=== PATIENT | female | born 1985 | race Hispanic/Latino ===

== ENCOUNTER 2019-07-28 11:37 | Inpatient (IN) | payer OTHER ==
[2019-07-28 12:41] LABS: Hematocrit 34.9 % (30.3-42.9); Mean Corpuscular HGB Conc 35 % (30-34); Mean Corpuscular Volume 90 fl (79-97); Platelet Count 191 K/mm3 (140-440); Red Blood Count 3.89 M/mm3 (3.65-5.03); Red Cell Distribution Width 13.4 % (13.2-15.2)
[2019-07-28 13:01] LABS: Bacteria,Urine 4+ /HPF (Negative); Bilirubin,Urine NEG (Negative); Blood,Urine NEG (Negative); Calcium Oxalate Crystals,Urine 1+; Color,Urine Yellow (Yellow); Mucus,Urine FEW /HPF; Protein,Urine <15 mg/dL mg/dL (Negative); Urobilinogen,Urine < 2.0 mg/dL (<2.0)
[2019-07-28 13:44] LABS: Alanine Aminotransferase 10 units/L (7-56); Uric Acid 5.5 mg/dL (3.5-7.6)
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
[2019-07-28] MEDS ORDERED: ePHEDrine SULFATE 50 MG/1 ML INJ IV PRN (15:19)
[2019-07-28] MEDS ORDERED: MINERAL OIL 30 ML ORAL LIQD PO PRN (15:19)
[2019-07-28] MEDS ORDERED: ONDANSETRON 4 MG/2 ML INJ IV PRN (15:19)
[2019-07-28] MEDS ORDERED: OXYTOCIN 20 UNIT/1000ML DRIP 20 UNITS/1,000 ML BAG IV SCH (16:00)
[2019-07-28] MEDS ORDERED: OXYTOCIN DRIP 30 UNITS/500 ML BAG IV SCH ×2 (16:00)
[2019-07-28] MEDS: fentaNYL 100 MCG/2 ML INJ IV PRN (16:08)
[2019-07-28] MEDS ORDERED: TERBUTALINE 1 MG/1 ML INJ IVP PRN (16:19)
[2019-07-28] MEDS ORDERED: TERBUTALINE 1 MG/1 ML INJ SUB-Q PRN (16:19)
[2019-07-28] MEDS ORDERED: LIDOCAINE (2%) 20 MG/1 ML VIAL 20 ML MDV INFILTRATI ONE (16:19)
--- NOTE | 2019-07-28 17:39 | Ultrasound Report ---
ULTRASOUND BIOPHYSICAL PROFILE AND LIMITED OB ULTRASOUND INDICATION / CLINICAL INFORMATION: well-being. KIMBERLEY. COMPARISON: None available. FINDINGS: BREATHING MOVEMENT = 2 GROSS BODY MOVEMENT = 2 TONE = 2 QUALITATIVE AMNIOTIC FLUID VOLUME = 2 TOTAL BIOPHYSICAL SCORE = 8/8 AMNIOTIC FLUID INDEX (cm) = 15.0 PRESENTATION: Cephalic. HEART RATE (beats per minute): 164 IMPRESSION: 1. biophysical profile = 8/8 2. KIMBERLEY = 15 cm Signer Name: Leo Pruitt MD Signed: 07/28/2019 5:34 PM Workstation Name: [email or web address]
[2019-07-28] MEDS: LACTATED RINGERS 1,000 ML IV SCH (19:14)
[2019-07-28] MEDS ORDERED: ZOLPIDEM 10 MG TAB PO PRN (19:48)
[2019-07-29] MEDS: LACTATED RINGERS 1,000 ML IV SCH ×2 (03:10→08:12)
--- NOTE | 2019-07-29 07:31 | Progress Note ---
Assessment and Plan pt c/o ctx increasing in intensity. Discussed options and expectations for today. Pt agreed with AROM. Encouraged pt to ask for epidural PRN. Nurses to start increasing pitocin per protocol. b/p stable overnight, no c/o HINTON, visual changes or epigastric pain. will continue to monitor closely. all questions addressed, pt and s/o verbalize understanding. - Patient Problems (1) 40 weeks gestation of Current Visit: Yes Status: Acute (2) Gestational hypertension Onset Date: ~07/28/19 Current Visit: Yes Status: Acute Qualifiers: Trimester: third trimester Qualified Code(s): O13.3 - Gestational [-induced] hypertension without significant proteinuria, third trimester Subjective - Subjective Date of service: 07/29/19 Principal diagnosis: IUP @ 40+3; IOL for GHTN Patient reports: movement normal, contractions, no vaginal bleeding Objective - Vital Signs Vital Signs: Vital Signs - 12hr 07/28/19 07/28/19 07/28/19 19:40 20:11 20:42 Pulse Rate 105 H 96 H 96 H Blood Pressure 137/91 154/94 145/92 07/28/19 07/28/19 07/28/19 21:10 21:40 22:10 Pulse Rate 101 H 99 H 115 H Blood Pressure 124/85 132/86 128/81 07/28/19 07/28/19 07/28/19 22:40 23:10 23:42 Pulse Rate 94 H 104 H 88 Blood Pressure 124/79 127/73 112/54 07/29/19 07/29/19 07/29/19 00:11 01:12 02:13 Pulse Rate 86 86 Blood Pressure 110/60 134/60 102/72 07/29/19 07/29/19 07/29/19 03:12 04:12 05:12 Pulse Rate 86 81 76 Blood Pressure 148/70 122/61 119/80 07/29/19 07/29/19 06:13 07:12 Pulse Rate 85 87 Blood Pressure 123/77 122/74 - Exam Breasts: normal Cardiovascular: Regular rate Lungs: Clear to auscultation Abdomen: Present: normal appearance, soft Vulva: both: normal Uterus: Present: normal FHR: auscultation normal, category 1 Uterine Contraction Monitor Mode: External Cervical Dilatation: 3.5 (AROM - clear ) Cervical Effacement Percentage: 70 station: -1 Uterine Contraction Pattern: Irregular Uterine Tone Measurement Phase: Contraction Uterine Contraction Intensity: Mild Extremities: normal Deep Tendon Reflex Grade: Normal +2 - Labs Labs: Abnormal Labs 07/28/19 07/28/19 07/28/19 12:30 12:31 12:31 MCHC 35 H Creatinine 0.6 L U Epithel Cells (Auto) 14.0 H Laboratory Results - last 24 hr 07/28/19 07/28/19 07/28/19 12:30 12:31 12:31 WBC 7.6 RBC 3.89 Hgb 12.0 Hct 34.9 MCV 90 MCH 31 MCHC 35 H RDW 13.4 Plt Count 191 Creatinine 0.6 L Estimated GFR > 60 Uric Acid 5.5 AST 12 ALT 10 Lactate Dehydrogenase 153 Urine Color Yellow Urine Turbidity Cloudy Urine pH 5.0 Ur Specific [place] 1.020 Urine Protein <15 mg/dl Urine Glucose (UA) Neg Urine Ketones Neg Urine Blood Neg Urine Nitrite Neg Urine Bilirubin Neg Urine Urobilinogen < 2.0 Ur Leukocyte Esterase Tr Urine WBC (Auto) 4.0 Urine RBC (Auto) 6.0 U Epithel Cells (Auto) 14.0 H Urine Bacteria (Auto) 4+ Calcium Oxalate Crystal 1+ Urine Mucus Few Blood Type Antibody Screen 07/28/19 13:58 WBC RBC Hgb Hct MCV MCH MCHC RDW Plt Count Creatinine Estimated GFR Uric Acid AST ALT Lactate Dehydrogenase Urine Color Urine Turbidity Urine pH Ur Specific [place] Urine Protein Urine Glucose (UA) Urine Ketones Urine Blood Urine Nitrite Urine Bilirubin Urine Urobilinogen Ur Leukocyte Esterase Urine WBC (Auto) Urine RBC (Auto) U Epithel Cells (Auto) Urine Bacteria (Auto) Calcium Oxalate Crystal Urine Mucus Blood Type O POSITIVE Antibody Screen Negative
[2019-07-29] MEDS ORDERED: OXYTOCIN DRIP 30 UNITS/500 ML BAG IV SCH (08:00)
--- NOTE | 2019-07-29 09:45 | Anesthesia Consultation ---
Anesthesia Consult and Med Hx Date of service: 07/29/19 - Airway Anesthetic Teeth Evaluation: Good ROM Head & Neck: Adequate Mental/Hyoid Distance: Adequate Mallampati Class: Class II Intubation Access Assessment: Probably Good - Pulmonary Exam CTA: Yes - Cardiac Exam Cardiac Exam: RRR - Pre-Operative Health Status ASA Pre-Surgery Classification: ASA2 Proposed Anesthetic Plan: Epidural - Pulmonary Hx Smoking: No Hx Asthma: No Hx Respiratory Symptoms: No SOB: No COPD: No Home Oxygen Therapy: No Hx Pneumonia: No Hx Sleep Apnea: No - Cardiovascular System Hx Hypertension: No Hx Coronary Artery Disease: No Hx Heart Attack/AMI: No Hx Angina: No Hx Percutaneous Transluminal Coronary Angioplasty (PTCA): No Hx Cardia Arrhythmia: No Hx Pacemaker: No Hx Internal Defibrillator: No Hx Valvular Heart Disease: No Hx Heart Murmur: No Hx Peripheral Vascular Disease: No - Central Nervous System Hx Neuromuscular Disorder: No Hx Seizures: No CVA: No Hx Back Pain: No Hx Psychiatric Problems: No - Gastrointestinal Hx Ulcer: No Hx Gastroesophageal Reflux Disease: No - Endocrine Hx Renal Disease: No Hx End Stage Renal Disease: No Hx Cirrhosis: No Hx Liver Disease: No Hx Insulin Dependent Diabetes: No Hx Non-Insulin Dependent Diabetes: No Hx Thyroid Disease: No Hx Hypothyroidism: No Hx Hyperthyroidism: No - Hematic Hx Anemia: Yes Hx Sickle Cell Disease: No - Other Systems Hx Alcohol Use: No Hx Substance Use: No Hx Cancer: No Hx Obesity: Yes
[2019-07-29] MEDS ORDERED: BUPIVACAINE/PF (0.25%) 2.5 MG/ML 10 ML VIAL INFILTRATI ONE ×2 (09:49→13:48)
[2019-07-29] MEDS ORDERED: ePHEDrine SULFATE 50 MG/1 ML INJ IV PRN (10:00)
[2019-07-29] MEDS ORDERED: fentaNYL-BUPIV 2 MCG/ML-0.125% 200 MCG/100 ML BAG EPIDURAL SCH (10:00)
[2019-07-29] MEDS ORDERED: NALOXONE 2 MG/2 ML INJ IV PRN (10:00)
--- NOTE | 2019-07-29 12:14 | Progress Note ---
Assessment and Plan patient feeling rectal pressure with ctx, SVE 7//-1. reassured patient she is making good change. Encourage pt to continue turning side to side, ok to get epidural redose. 2 elevated b/p's noted while patient was laying on the cuff, b/p repeated NL. - Patient Problems (1) 40 weeks gestation of Current Visit: Yes Status: Acute (2) Gestational hypertension Onset Date: ~07/28/19 Current Visit: Yes Status: Acute Qualifiers: Trimester: third trimester Qualified Code(s): O13.3 - Gestational [ -induced] hypertension without significant proteinuria, third trimester Subjective - Subjective Date of service: 07/29/19 Principal diagnosis: IUP @ 40+3; IOL for GHTN Patient reports: loss of fluid, movement normal, other (rectal pressure with ctx), no vaginal bleeding Objective - Vital Signs Vital Signs: Vital Signs - 12hr 07/29/19 07/29/19 07/29/19 00:11 01:12 02:13 Temperature Pulse Rate 86 86 Respiratory Rate Blood Pressure 110/60 134/60 102/72 Blood Pressure [Left] O2 Sat by Pulse Oximetry 07/29/19 07/29/19 07/29/19 03:12 04:12 05:12 Temperature Pulse Rate 86 81 76 Respiratory Rate Blood Pressure 148/70 122/61 119/80 Blood Pressure [Left] O2 Sat by Pulse Oximetry 07/29/19 07/29/19 07/29/19 06:13 07:12 07:26 Temperature Pulse Rate 85 87 105 H Respiratory Rate Blood Pressure 123/77 122/74 130/82 Blood Pressure [Left] O2 Sat by Pulse Oximetry 07/29/19 07/29/19 07/29/19 07:27 07:28 08:08 Temperature 97.9 F Pulse Rate 105 H 104 H 100 H Respiratory 18 Rate Blood Pressure 148/93 Blood Pressure 130/82 [Left] O2 Sat by Pulse 100 99 Oximetry 07/29/19 07/29/19 07/29/19 08:38 08:40 08:45 Temperature Pulse Rate 96 H 93 H 65 Respiratory Rate Blood Pressure 141/99 Blood Pressure [Left] O2 Sat by Pulse 98 97 Oximetry 07/29/19 07/29/19 07/29/19 08:46 08:50 08:55 Temperature Pulse Rate 76 110 H 90 Respiratory Rate Blood Pressure Blood Pressure [Left] O2 Sat by Pulse 86 99 99 Oximetry 07/29/19 07/29/19 07/29/19 08:57 09:00 09:03 Temperature Pulse Rate 65 92 H 65 Respiratory Rate Blood Pressure Blood Pressure [Left] O2 Sat by Pulse 83 L 99 92 Oximetry 07/29/19 07/29/19 07/29/19 09:05 09:07 09:10 Temperature Pulse Rate 92 H 94 H 93 H Respiratory Rate Blood Pressure 137/72 Blood Pressure [Left] O2 Sat by Pulse 99 78 L Oximetry 07/29/19 07/29/19 07/29/19 09:16 09:22 09:24 Temperature Pulse Rate 102 H 102 H Respiratory Rate Blood Pressure 129/77 Blood Pressure [Left] O2 Sat by Pulse 94 100 Oximetry 07/29/19 07/29/19 07/29/19 09:25 09:27 09:29 Temperature Pulse Rate 106 H 100 H 103 H Respiratory Rate Blood Pressure 131/72 137/78 129/71 Blood Pressure [Left] O2 Sat by Pulse 100 Oximetry 07/29/19 07/29/19 07/29/19 09:31 09:32 09:34 Temperature Pulse Rate 93 H 93 H 98 H Respiratory Rate Blood Pressure 137/72 120/66 Blood Pressure [Left] O2 Sat by Pulse 99 Oximetry 07/29/19 07/29/19 07/29/19 09:35 09:36 09:38 Temperature Pulse Rate 103 H 93 H Respiratory Rate Blood Pressure 120/68 128/78 Blood Pressure [Left] O2 Sat by Pulse 98 Oximetry 07/29/19 07/29/19 07/29/19 09:40 09:42 09:43 Temperature Pulse Rate 106 H 102 H 114 H Respiratory Rate Blood Pressure 115/62 125/64 121/62 Blood Pressure [Left] O2 Sat by Pulse Oximetry 07/29/19 07/29/19 07/29/19 09:45 09:50 09:54 Temperature Pulse Rate 110 H 118 H 103 H Respiratory Rate Blood Pressure 123/58 126/62 Blood Pressure [Left] O2 Sat by Pulse 98 98 Oximetry 07/29/19 07/29/19 07/29/19 09:55 10:00 10:01 Temperature 97.9 F Pulse Rate 112 H 109 H Respiratory Rate Blood Pressure 125/60 Blood Pressure [Left] O2 Sat by Pulse 99 98 Oximetry 07/29/19 07/29/19 07/29/19 10:04 10:05 10:09 Temperature Pulse Rate 112 H 111 H 113 H Respiratory Rate Blood Pressure 119/54 125/61 Blood Pressure [Left] O2 Sat by Pulse 100 Oximetry 07/29/19 07/29/19 07/29/19 10:10 10:14 10:15 Temperature Pulse Rate 114 H 113 H 115 H Respiratory Rate Blood Pressure 131/58 Blood Pressure [Left] O2 Sat by Pulse 100 100 Oximetry 07/29/19 07/29/19 07/29/19 10:20 10:21 10:24 Temperature Pulse Rate 109 H 100 H 100 H Respiratory Rate Blood Pressure 102/57 101/54 Blood Pressure [Left] O2 Sat by Pulse 100 Oximetry 07/29/19 07/29/19 07/29/19 10:25 10:30 10:35 Temperature Pulse Rate 103 H 97 H 77 Respiratory Rate Blood Pressure Blood Pressure [Left] O2 Sat by Pulse 99 77 L 62 L Oximetry 07/29/19 07/29/19 07/29/19 10:39 10:40 10:44 Temperature Pulse Rate 81 87 96 H Respiratory Rate Blood Pressure 165/121 Blood Pressure [Left] O2 Sat by Pulse 53 L 56 L 97 Oximetry 07/29/19 07/29/19 07/29/19 10:45 10:49 10:50 Temperature Pulse Rate 100 H 105 H 97 H Respiratory Rate Blood Pressure 117/56 113/58 Blood Pressure [Left] O2 Sat by Pulse 100 Oximetry 07/29/19 07/29/19 07/29/19 10:55 10:59 11:00 Temperature Pulse Rate 101 H 102 H 103 H Respiratory Rate Blood Pressure 134/58 118/56 Blood Pressure [Left] O2 Sat by Pulse 99 100 Oximetry 07/29/19 07/29/19 07/29/19 11:05 11:09 11:10 Temperature Pulse Rate 100 H 98 H 98 H Respiratory Rate Blood Pressure 116/56 119/61 Blood Pressure [Left] O2 Sat by Pulse 100 100 Oximetry 07/29/19 07/29/19 07/29/19 11:15 11:19 11:20 Temperature Pulse Rate 106 H 111 H 105 H Respiratory Rate Blood Pressure 109/57 113/55 Blood Pressure [Left] O2 Sat by Pulse 93 99 Oximetry 07/29/19 07/29/19 07/29/19 11:25 11:29 11:30 Temperature Pulse Rate 96 H 120 H 117 H Respiratory Rate Blood Pressure 126/62 Blood Pressure [Left] O2 Sat by Pulse 92 99 Oximetry 07/29/19 07/29/19 07/29/19 11:35 11:39 11:40 Temperature Pulse Rate 125 H 112 H 113 H Respiratory Rate Blood Pressure 198/103 Blood Pressure [Left] O2 Sat by Pulse 100 92 98 Oximetry 07/29/19 07/29/19 07/29/19 11:45 11:46 11:50 Temperature 98.1 F Pulse Rate 112 H 116 H Respiratory Rate Blood Pressure Blood Pressure [Left] O2 Sat by Pulse 100 100 Oximetry 07/29/19 07/29/19 07/29/19 11:54 11:55 12:00 Temperature Pulse Rate 115 H 118 H Respiratory Rate Blood Pressure 181/100 Blood Pressure [Left] O2 Sat by Pulse 88 82 L Oximetry 07/29/19 07/29/19 12:03 12:05 Temperature Pulse Rate 125 H 122 H Respiratory Rate Blood Pressure 122/69 Blood Pressure [Left] O2 Sat by Pulse 100 Oximetry - Exam Breasts: normal Cardiovascular: Regular rate Lungs: Clear to auscultation, Normal air movement Abdomen: Present: normal appearance, soft Vulva: both: normal Uterus: Present: normal FHR: auscultation normal, category 1 Uterine Contraction Monitor Mode: External Cervical Dilatation: 7 Cervical Effacement Percentage: 90 station: -1 Uterine Tone Measurement Phase: Contraction Uterine Contraction Intensity: Strong/Firm Extremities: normal - Labs Labs: Abnormal Labs 07/28/19 07/28/19 07/28/19 12:30 12:31 12:31 MCHC 35 H Creatinine 0.6 L U Epithel Cells (Auto) 14.0 H Laboratory Results - last 24 hr 07/28/19 07/28/19 07/28/19 12:30 12:31 12:31 WBC 7.6 RBC 3.89 Hgb 12.0 Hct 34.9 MCV 90 MCH 31 MCHC 35 H RDW 13.4 Plt Count 191 Creatinine 0.6 L Estimated GFR > 60 Uric Acid 5.5 AST 12 ALT 10 Lactate Dehydrogenase 153 Urine Color Yellow Urine Turbidity Cloudy Urine pH 5.0 Ur Specific [place] 1.020 Urine Protein <15 mg/dl Urine Glucose (UA) Neg Urine Ketones Neg Urine Blood Neg Urine Nitrite Neg Urine Bilirubin Neg Urine Urobilinogen < 2.0 Ur Leukocyte Esterase Tr Urine WBC (Auto) 4.0 Urine RBC (Auto) 6.0 U Epithel Cells (Auto) 14.0 H Urine Bacteria (Auto) 4+ Calcium Oxalate Crystal 1+ Urine Mucus Few Blood Type Antibody Screen 07/28/19 13:58 WBC RBC Hgb Hct MCV MCH MCHC RDW Plt Count Creatinine Estimated GFR Uric Acid AST ALT Lactate Dehydrogenase Urine Color Urine Turbidity Urine pH Ur Specific [place] Urine Protein Urine Glucose (UA) Urine Ketones Urine Blood Urine Nitrite Urine Bilirubin Urine Urobilinogen Ur Leukocyte Esterase Urine WBC (Auto) Urine RBC (Auto) U Epithel Cells (Auto) Urine Bacteria (Auto) Calcium Oxalate Crystal Urine Mucus Blood Type O POSITIVE Antibody Screen Negative
[2019-07-29] MEDS: fentaNYL 100 MCG/2 ML INJ IV PRN (13:37)
--- NOTE | 2019-07-29 13:41 | Event Note ---
Date: 07/29/19 Patient feeling strong urge to push with ctx, head does descend during ctx to 0 station but between ctx -1 station. swollen anterior portion of cervix noted. IUPC and ISE placed without difficulty. no molding or caput noted on head. Anesthesia will come redose to try and give pt relief shortly, will give IV fentayl in the mean time. EFW 8.5-9lbs by lolly, pelvis outlet feels adequate difficult to fully asses.. nursing staff has been adequately turning patient and utilizing positions to help baby descend and rotate. Discussed with patient concerns over head remaining at -1 station and potential size of infant or head asynclitic. will consult with Dr. Ddod.
[2019-07-29] MEDS ORDERED: KETOROLAC 30 MG/1 ML INJ ONE ×2 (14:48→18:00)
[2019-07-29] MEDS ORDERED: ONDANSETRON 4 MG/2 ML INJ ONE ×2 (14:48→18:00)
[2019-07-29] MEDS ORDERED: LIDOCAINE MPF (2%) 20 MG/1 ML VIAL 5 ML ONE ×3 (14:48→17:03)
[2019-07-29] MEDS ORDERED: fentaNYL 100 MCG/2 ML INJ ONE ×2 (15:08→17:02)
[2019-07-29] MEDS ORDERED: BICITRA ORAL LIQD 30ML PO SCH (16:15)
[2019-07-29] MEDS ORDERED: METOCLOPRAMIDE 10 MG/2 ML INJ IV SCH (16:15)
[2019-07-29] MEDS ORDERED: FAMOTIDINE 20 MG/2 ML INJ IV SCH (16:15)
[2019-07-29] MEDS ORDERED: HYDROmorphone 1 MG/1 ML INJ ONE (16:19)
--- NOTE | 2019-07-29 16:22 | Progress Note ---
Assessment and Plan no change in cervix or station despite several hours of adequate labor. patient continues to be overwhelmed with rectal pressure. discussed options for continued labor verses operative delivery. Patient desires c/s . discussed risk of operative - injury to surrounding organs, infection, need for blood transfusion. She may always need c/s for future births. pt agreed, consents signed. - Patient Problems (1) 40 weeks gestation of Current Visit: Yes Status: Acute (2) Gestational hypertension Onset Date: ~07/28/19 Current Visit: Yes Status: Acute Qualifiers: Trimester: third trimester Qualified Code(s): O13.3 - Gestational [-induced] hypertension without significant proteinuria, third trimester Subjective - Subjective Date of service: 07/29/19 Principal diagnosis: IUP @ 40+3; IOL for GHTN Patient reports: loss of fluid, movement normal, other (rectal pressure with ctx), no vaginal bleeding Objective - Vital Signs Vital Signs: Vital Signs - 12hr 07/29/19 07/29/19 07/29/19 05:12 06:13 07:12 Temperature Pulse Rate 76 85 87 Respiratory Rate Blood Pressure 119/80 123/77 122/74 Blood Pressure [Left] O2 Sat by Pulse Oximetry 07/29/19 07/29/19 07/29/19 07:26 07:27 07:28 Temperature 97.9 F Pulse Rate 105 H 105 H 104 H Respiratory 18 Rate Blood Pressure 130/82 Blood Pressure 130/82 [Left] O2 Sat by Pulse 100 99 Oximetry 07/29/19 07/29/19 07/29/19 08:08 08:38 08:40 Temperature Pulse Rate 100 H 96 H 93 H Respiratory Rate Blood Pressure 148/93 141/99 Blood Pressure [Left] O2 Sat by Pulse 98 Oximetry 07/29/19 07/29/19 07/29/19 08:45 08:46 08:50 Temperature Pulse Rate 65 76 110 H Respiratory Rate Blood Pressure Blood Pressure [Left] O2 Sat by Pulse 97 86 99 Oximetry 07/29/19 07/29/19 07/29/19 08:55 08:57 09:00 Temperature Pulse Rate 90 65 92 H Respiratory Rate Blood Pressure Blood Pressure [Left] O2 Sat by Pulse 99 83 L 99 Oximetry 07/29/19 07/29/19 07/29/19 09:03 09:05 09:07 Temperature Pulse Rate 65 92 H 94 H Respiratory Rate Blood Pressure 137/72 Blood Pressure [Left] O2 Sat by Pulse 92 99 Oximetry 07/29/19 07/29/19 07/29/19 09:10 09:16 09:22 Temperature Pulse Rate 93 H 102 H Respiratory Rate Blood Pressure Blood Pressure [Left] O2 Sat by Pulse 78 L 94 100 Oximetry 07/29/19 07/29/19 07/29/19 09:24 09:25 09:27 Temperature Pulse Rate 102 H 106 H 100 H Respiratory Rate Blood Pressure 129/77 131/72 137/78 Blood Pressure [Left] O2 Sat by Pulse 100 Oximetry 07/29/19 07/29/19 07/29/19 09:29 09:31 09:32 Temperature Pulse Rate 103 H 93 H 93 H Respiratory Rate Blood Pressure 129/71 137/72 Blood Pressure [Left] O2 Sat by Pulse 99 Oximetry 07/29/19 07/29/19 07/29/19 09:34 09:35 09:36 Temperature Pulse Rate 98 H 103 H 93 H Respiratory Rate Blood Pressure 120/66 120/68 Blood Pressure [Left] O2 Sat by Pulse 98 Oximetry 07/29/19 07/29/19 07/29/19 09:38 09:40 09:42 Temperature Pulse Rate 106 H 102 H Respiratory Rate Blood Pressure 128/78 115/62 125/64 Blood Pressure [Left] O2 Sat by Pulse Oximetry 07/29/19 07/29/19 07/29/19 09:43 09:45 09:50 Temperature Pulse Rate 114 H 110 H 118 H Respiratory Rate Blood Pressure 121/62 123/58 Blood Pressure [Left] O2 Sat by Pulse 98 98 Oximetry 07/29/19 07/29/19 07/29/19 09:54 09:55 10:00 Temperature Pulse Rate 103 H 112 H 109 H Respiratory Rate Blood Pressure 126/62 125/60 Blood Pressure [Left] O2 Sat by Pulse 99 98 Oximetry 07/29/19 07/29/19 07/29/19 10:01 10:04 10:05 Temperature 97.9 F Pulse Rate 112 H 111 H Respiratory Rate Blood Pressure 119/54 Blood Pressure [Left] O2 Sat by Pulse 100 Oximetry 07/29/19 07/29/19 07/29/19 10:09 10:10 10:14 Temperature Pulse Rate 113 H 114 H 113 H Respiratory Rate Blood Pressure 125/61 131/58 Blood Pressure [Left] O2 Sat by Pulse 100 Oximetry 07/29/19 07/29/19 07/29/19 10:15 10:20 10:21 Temperature Pulse Rate 115 H 109 H 100 H Respiratory Rate Blood Pressure 102/57 Blood Pressure [Left] O2 Sat by Pulse 100 100 Oximetry 07/29/19 07/29/19 07/29/19 10:24 10:25 10:30 Temperature Pulse Rate 100 H 103 H 97 H Respiratory Rate Blood Pressure 101/54 Blood Pressure [Left] O2 Sat by Pulse 99 77 L Oximetry 07/29/19 07/29/19 07/29/19 10:35 10:39 10:40 Temperature Pulse Rate 77 81 87 Respiratory Rate Blood Pressure 165/121 Blood Pressure [Left] O2 Sat by Pulse 62 L 53 L 56 L Oximetry 07/29/19 07/29/19 07/29/19 10:44 10:45 10:49 Temperature Pulse Rate 96 H 100 H 105 H Respiratory Rate Blood Pressure 117/56 113/58 Blood Pressure [Left] O2 Sat by Pulse 97 Oximetry 07/29/19 07/29/19 07/29/19 10:50 10:55 10:59 Temperature Pulse Rate 97 H 101 H 102 H Respiratory Rate Blood Pressure 134/58 118/56 Blood Pressure [Left] O2 Sat by Pulse 100 99 Oximetry 07/29/19 07/29/19 07/29/19 11:00 11:05 11:09 Temperature Pulse Rate 103 H 100 H 98 H Respiratory Rate Blood Pressure 116/56 119/61 Blood Pressure [Left] O2 Sat by Pulse 100 100 Oximetry 07/29/19 07/29/19 07/29/19 11:10 11:15 11:19 Temperature Pulse Rate 98 H 106 H 111 H Respiratory Rate Blood Pressure 109/57 113/55 Blood Pressure [Left] O2 Sat by Pulse 100 93 Oximetry 07/29/19 07/29/19 07/29/19 11:20 11:25 11:29 Temperature Pulse Rate 105 H 96 H 120 H Respiratory Rate Blood Pressure 126/62 Blood Pressure [Left] O2 Sat by Pulse 99 92 Oximetry 07/29/19 07/29/19 07/29/19 11:30 11:35 11:39 Temperature Pulse Rate 117 H 125 H 112 H Respiratory Rate Blood Pressure Blood Pressure [Left] O2 Sat by Pulse 99 100 92 Oximetry 07/29/19 07/29/19 07/29/19 11:40 11:45 11:46 Temperature 98.1 F Pulse Rate 113 H 112 H Respiratory Rate Blood Pressure 198/103 Blood Pressure [Left] O2 Sat by Pulse 98 100 Oximetry 07/29/19 07/29/19 07/29/19 11:50 11:54 11:55 Temperature Pulse Rate 116 H 115 H Respiratory Rate Blood Pressure 181/100 Blood Pressure [Left] O2 Sat by Pulse 100 88 Oximetry 07/29/19 07/29/19 07/29/19 12:00 12:03 12:05 Temperature Pulse Rate 118 H 125 H 122 H Respiratory Rate Blood Pressure 122/69 Blood Pressure [Left] O2 Sat by Pulse 82 L 100 Oximetry 07/29/19 07/29/19 07/29/19 12:10 12:15 12:20 Temperature Pulse Rate 104 H 111 H 111 H Respiratory Rate Blood Pressure Blood Pressure [Left] O2 Sat by Pulse 67 L 66 L 100 Oximetry 07/29/19 07/29/19 07/29/19 12:25 12:29 12:32 Temperature Pulse Rate 115 H 114 H 106 H Respiratory Rate Blood Pressure 113/55 Blood Pressure [Left] O2 Sat by Pulse 99 97 Oximetry 07/29/19 07/29/19 07/29/19 12:34 12:39 12:44 Temperature Pulse Rate 109 H 114 H 122 H Respiratory Rate Blood Pressure Blood Pressure [Left] O2 Sat by Pulse 97 99 99 Oximetry 07/29/19 07/29/19 07/29/19 12:46 12:49 12:54 Temperature Pulse Rate 121 H 114 H 117 H Respiratory Rate Blood Pressure 118/59 Blood Pressure [Left] O2 Sat by Pulse 99 100 Oximetry 07/29/19 07/29/19 07/29/19 12:59 13:01 13:04 Temperature Pulse Rate 109 H 113 H 112 H Respiratory Rate Blood Pressure 110/60 Blood Pressure [Left] O2 Sat by Pulse 99 99 Oximetry 07/29/19 07/29/19 07/29/19 13:09 13:14 13:19 Temperature Pulse Rate 127 H 129 H 127 H Respiratory Rate Blood Pressure Blood Pressure [Left] O2 Sat by Pulse 100 100 99 Oximetry 07/29/19 07/29/19 07/29/19 13:24 13:29 13:30 Temperature Pulse Rate 131 H 143 H 137 H Respiratory Rate Blood Pressure 127/69 Blood Pressure [Left] O2 Sat by Pulse 98 100 Oximetry 07/29/19 07/29/19 07/29/19 13:34 13:39 13:44 Temperature Pulse Rate 137 H 133 H 129 H Respiratory Rate Blood Pressure Blood Pressure [Left] O2 Sat by Pulse 100 97 99 Oximetry 07/29/19 07/29/19 07/29/19 13:45 13:49 13:54 Temperature Pulse Rate 126 H 137 H 128 H Respiratory Rate Blood Pressure 120/71 121/73 Blood Pressure [Left] O2 Sat by Pulse 100 100 Oximetry 07/29/19 07/29/19 07/29/19 13:55 13:59 14:04 Temperature Pulse Rate 129 H 124 H 125 H Respiratory Rate Blood Pressure 132/76 131/72 Blood Pressure [Left] O2 Sat by Pulse 98 100 Oximetry 07/29/19 07/29/19 07/29/19 14:05 14:10 14:14 Temperature Pulse Rate 123 H 46 L 121 H Respiratory Rate Blood Pressure 114/75 121/91 131/77 Blood Pressure [Left] O2 Sat by Pulse 90 88 Oximetry 07/29/19 07/29/19 07/29/19 14:15 14:19 14:20 Temperature Pulse Rate 120 H 117 H 114 H Respiratory Rate Blood Pressure 120/72 Blood Pressure [Left] O2 Sat by Pulse 100 98 Oximetry 07/29/19 07/29/19 07/29/19 14:24 14:25 14:29 Temperature Pulse Rate 120 H 125 H 117 H Respiratory Rate Blood Pressure 121/73 131/74 Blood Pressure [Left] O2 Sat by Pulse 98 Oximetry 07/29/19 07/29/19 07/29/19 14:30 14:34 14:35 Temperature Pulse Rate 124 H 122 H 120 H Respiratory Rate Blood Pressure 136/74 Blood Pressure [Left] O2 Sat by Pulse 98 99 Oximetry 07/29/19 07/29/19 07/29/19 14:39 14:40 14:44 Temperature Pulse Rate 114 H 116 H 117 H Respiratory Rate Blood Pressure 131/78 128/75 Blood Pressure [Left] O2 Sat by Pulse 97 Oximetry 07/29/19 07/29/19 07/29/19 14:46 14:49 14:50 Temperature Pulse Rate 118 H 112 H 117 H Respiratory Rate Blood Pressure 129/70 Blood Pressure [Left] O2 Sat by Pulse 97 98 Oximetry 07/29/19 07/29/19 07/29/19 14:54 14:55 14:59 Temperature Pulse Rate 125 H 117 H 121 H Respiratory Rate Blood Pressure 132/74 127/80 Blood Pressure [Left] O2 Sat by Pulse 98 Oximetry 07/29/19 07/29/19 07/29/19 15:00 15:04 15:06 Temperature Pulse Rate 119 H 125 H 119 H Respiratory Rate Blood Pressure 132/82 Blood Pressure [Left] O2 Sat by Pulse 97 97 Oximetry 07/29/19 07/29/19 07/29/19 15:10 15:14 15:19 Temperature Pulse Rate 121 H 127 H 131 H Respiratory Rate Blood Pressure 132/79 129/70 119/67 Blood Pressure [Left] O2 Sat by Pulse 97 98 Oximetry 07/29/19 07/29/19 07/29/19 15:24 15:30 15:34 Temperature Pulse Rate 133 H 121 H 129 H Respiratory Rate Blood Pressure 128/60 116/72 Blood Pressure [Left] O2 Sat by Pulse 98 97 Oximetry 07/29/19 07/29/19 07/29/19 15:35 15:38 15:40 Temperature Pulse Rate 135 H 134 H 137 H Respiratory Rate Blood Pressure Blood Pressure [Left] O2 Sat by Pulse 99 92 99 Oximetry 07/29/19 07/29/19 07/29/19 15:44 15:45 15:49 Temperature Pulse Rate 120 H 131 H 129 H Respiratory Rate Blood Pressure 128/74 Blood Pressure [Left] O2 Sat by Pulse 77 L 100 Oximetry 07/29/19 07/29/19 07/29/19 15:50 15:54 15:55 Temperature Pulse Rate 139 H 131 H 133 H Respiratory Rate Blood Pressure 126/69 Blood Pressure [Left] O2 Sat by Pulse 100 99 Oximetry 07/29/19 07/29/19 07/29/19 15:59 16:00 16:04 Temperature Pulse Rate 140 H 139 H 131 H Respiratory Rate Blood Pressure 141/83 Blood Pressure [Left] O2 Sat by Pulse 99 99 Oximetry 07/29/19 07/29/19 07/29/19 16:05 16:09 16:10 Temperature Pulse Rate 130 H 130 H 134 H Respiratory Rate Blood Pressure 115/74 130/81 Blood Pressure [Left] O2 Sat by Pulse 98 Oximetry 07/29/19 07/29/19 16:14 16:15 Temperature Pulse Rate 135 H 136 H Respiratory Rate Blood Pressure Blood Pressure [Left] O2 Sat by Pulse 94 94 Oximetry - Exam Cardiovascular: Regular rate Lungs: Clear to auscultation, Normal air movement Abdomen: Present: normal appearance, soft Vulva: both: normal Uterus: Present: normal FHR: auscultation normal, category 2 Uterine Contraction Monitor Mode: Internal Cervical Dilatation: 8.5 Cervical Effacement Percentage: 90 station: -1 Uterine Contraction Frequency (min): 2-3 Uterine Contraction Duration: 60 Uterine Contraction Pattern: Regular Uterine Tone Measurement Phase: Contraction Uterine Contraction Intensity: Moderate Extremities: normal Deep Tendon Reflex Grade: Normal +2 - Labs Labs: Abnormal Labs 07/28/19 07/28/19 07/28/19 12:30 12:31 12:31 MCHC 35 H Creatinine 0.6 L U Epithel Cells (Auto) 14.0 H Laboratory Results - last 24 hr 07/28/19 Unknown RPR Nonreactive
[2019-07-29] MEDS ORDERED: ONDANSETRON 4 MG/2 ML INJ IV PRN (16:48)
[2019-07-29] MEDS ORDERED: HYDROmorphone 1 MG/1 ML INJ IV PRN (16:48)
[2019-07-29] MEDS ORDERED: diphenhydrAMINE 50 MG/ML VIAL IV PRN (16:48)
--- NOTE | 2019-07-29 16:48 | Anesthesia Day of Surgery ---
Anesthesia Day of Surgery - Day of Surgery Patient Examined: Yes Patient H&P Reviewed: Yes Patient is NPO: Yes Beta Blockers: No Cardiac Clearance: No Pulmonary Clearance: No Matteo's Test: N/A
[2019-07-29] MEDS ORDERED: WATER FOR IRRIG STERILE 1,500 ML BOTTLE IR ONE (17:00)
[2019-07-29] MEDS ORDERED: SODIUM CHLORIDE 0.9% IRR 1,500 ML BOTTLE IR ONE (17:00)
[2019-07-29] MEDS ORDERED: ceFAZolin/Water 2 GM/20 ML 2 GM/20 ML SYRINGE IV NR (17:00)
--- NOTE | 2019-07-29 18:05 | Operative Report ---
Operative Report Operative Report: Date of procedure: 07/29/2019 Pre-operative diagnosis: 40 weeks gestation Failure to progress Post-operative diagnosis: Same plus OP presentation Procedure name(s): Primary low transverse section via Pfannenstiel skin incision Surgeon: Dr. Dodd Disease Education Specialist: YOCASTA Anesthesia: Epidural EBL: 900 mL Urine output: 100 mL of harlan color urine out at the end of the procedure Fluids: 1100 mL Findings: Liveborn male weight 8 lbs. 6 oz. Apgars of 8 and 9 at one and 5 minutes Grossly normal fallopian tubes and ovaries bilaterally Indications: Patient admitted for induction of labor due to gestational hypertension. Patient progressed to approximately 7-8 cm and remained unchanged over several hours. Decision was made this time to proceed with operative delivery via section. All risks benefits and alternatives were discussed with the patient. Consents were signed and placed on the chart. Procedure: Patient was taking to the operating room. Patient was then prepped and draped in sterile fashion after anesthesia was found to be adequate. A low transverse skin incision was made with the scalpel and carried down to the underlying layer of fascia with the Bovie. The fascia was then incised in the midline and this incision was extended bilaterally with the Bovie. The superior aspect of the fascia was grasped with Wendy clamps tented upward and dissected off of the anterior rectus muscles with the scalpel. In similar fashion the inferior aspect of the fascia was grasped with Wendy clamps tented upward and dissected off of the anterior rectus muscles. The rectus muscles were then bluntly divided in the midline. The peritoneum was identified and entered into sharply. The bladder blade was placed. The bladder flap was created using the Metzenbaum scissors. The bladder blade was replaced. A lower transverse uterine incision was made with the scalpel and extended bilaterally with the bandage scissors. Artificial rupture of membranes was performed yielding clear amniotic fluid. Infant noted to be in direct OP presentation. The infant's h ead was then delivered atraumatically. The anterior shoulder and rest of delivered without difficulty. The cord 1 easily reduced. The umbilical cord was clamped x2. The cord was cut. The was then placed in sterile bassinet. The cord blood was collected. The placenta was manually extracted in its entirety. The uterus was exteriorized and cleared of all clots and debris. The uterine incision was closed using 0 Vicryl in a running locking fashion. A second imbricating layer of the same suture was then created. The posterior cul-de-sac was copiously irrigated. The uterus was returned to the abdomen. The gutters were also irrigated. The anterior rectus muscles were reapproximated using 3-0 Vicryl. The anterior rectus fascia was reapproximated using 0 Vicryl in a running fashion. The subcuticular fat was reapproximated using 2-0 Vicryl in a running fashion. The skin was reapproximated with 4-0 Monocryl in a subcuticular stitch. The patient tolerated the procedure well. Sponge lap and needle counts were all correct x3. Patient was taken to the recovery room awake and in stable condition.
[2019-07-29] MEDS ORDERED: NALOXONE 0.4 MG/1 ML INJ IV PRN (18:06)
[2019-07-29] MEDS ORDERED: SIMETHICONE 80 MG CHEW TAB PO PRN (18:06)
[2019-07-29] MEDS ORDERED: LANOLIN/ZINC/DIMETHICONE (LANSINOH) 7 GM TP PRN (18:06)
[2019-07-29] MEDS ORDERED: WITCH HAZEL/ GLYCERIN PAD TP PRN (18:06)
--- NOTE | 2019-07-29 18:09 | Post Anesthesia Evaluation ---
- Post Anesthesia Evaluation Patient Participated: Yes Airway Patent: Yes Stable Respiratory Function: Yes Nausea/Vomiting: No Temp > 96.8F: Yes Pain Manageable: Yes Adequeate Hydration: Yes Anesthesia Complications: No Block Receding Appropriately: Yes Patient on Ventilator: No
--- NOTE | 2019-07-29 18:38 | Event Note ---
Date: 07/29/19 Pt does have a h/o depression and anxiety and previously was on Zoloft. Will restart at this time. Pt agrees with plan of care and desires to restart medications.
[2019-07-29] MEDS: HYDROmorphone 1 MG/1 ML INJ IV PRN (21:29)
[2019-07-30] MEDS: KETOROLAC 30 MG/1 ML INJ IV PRN ×2 (01:03→06:29)
[2019-07-30] MEDS: ceFAZolin/NS 1 GM/50 ML 1 GM/50 ML BAG IV SCH ×2 (01:09→08:46)
[2019-07-30] MEDS: LACTATED RINGERS 1,000 ML IV SCH (01:09)
[2019-07-30] MEDS: HYDROmorphone 1 MG/1 ML INJ IV PRN (02:17)
[2019-07-30] MEDS ORDERED: TETANUS,DIPH,PERTUSS(ACELL) VACCINE 0.5 ML SYRINGE IM ONE (06:00)
[2019-07-30 06:20] LABS: Hematocrit 32.5 % (30.3-42.9); Hemoglobin 10.9 gm/dl (10.1-14.3)
--- NOTE | 2019-07-30 08:33 | Progress Note ---
Assessment and Plan POD1. Patient resting comfortably in bed holding . Patient reports feeling well, other than HINTON which she describes as worse with standing and position changes, better when lying down. She reports neck pain also. Will consult anesthesia to assess for post dural punctur HINTON. FF, ML, U/1. Vaginal bleeding is small, patient denies any heavy bleeding or clots. Incision is dressed, C/D/I. Instructed to shower this morning and remove dressing. DWP post delivery H&H, she denies any dizziness or feeling faint with position changes or ambulation. She reports breast feeding is going well, no breast complaints. DWP PP depression s/s, she denies any, taking Zoloft as ordered. She reports "I actually feel so much better emotionally now than usual". Encouraged pt to reach out with any emotional concerns or changes. Encouraged pt to continue frequent ambulation, increase water intake, use of IS. She verbalizes understanding. VSSAF. Continue post op pathway at this time. Subjective - Subjective Date of service: 07/30/19 Principal diagnosis: POD1 s/p primary c/s; GHTN Patient reports: appetite normal, voiding normally, pain well controlled, flatus, ambulating normally, other (HINTON with standing and ambulation, neck pain) : doing well Objective - Vital Signs Latest vital signs: Vital Signs Temp Pulse Resp BP BP Pulse Ox 07/30/19 06:59 18 07/30/19 06:29 18 07/30/19 04:00 98.4 F 60 18 112/66 07/30/19 02:47 18 07/30/19 02:17 18 07/30/19 01:33 18 07/30/19 01:03 18 07/30/19 00:00 98.6 F 78 16 127/77 07/29/19 21:59 18 07/29/19 21:29 18 07/29/19 20:00 98.7 F 77 18 129/82 07/29/19 19:15 101 H 12 119/60 07/29/19 18:45 85 18 116/74 07/29/19 18:30 96 H 18 106/63 07/29/19 18:20 96 H 15 112/63 07/29/19 18:15 98 H 20 114/64 07/29/19 18:10 98 H 20 109/64 07/29/19 18:05 97.6 F 104 H 20 105/65 07/29/19 16:45 137 H 95 07/29/19 16:40 136 H 98 07/29/19 16:35 137 H 100 07/29/19 16:29 131 H 98 07/29/19 16:25 142 H 99 07/29/19 16:19 143 H 94 07/29/19 16:15 136 H 94 07/29/19 16:14 135 H 94 07/29/19 16:10 134 H 98 07/29/19 16:09 130 H 130/81 07/29/19 16:05 130 H 115/74 07/29/19 16:04 131 H 99 07/29/19 16:00 139 H 141/83 07/29/19 15:59 140 H 99 07/29/19 15:55 133 H 99 07/29/19 15:54 131 H 126/69 07/29/19 15:50 139 H 100 07/29/19 15:49 129 H 128/74 07/29/19 15:45 131 H 100 07/29/19 15:44 120 H 77 L 07/29/19 15:40 137 H 99 07/29/19 15:38 134 H 92 07/29/19 15:35 135 H 99 07/29/19 15:34 129 H 116/72 07/29/19 15:30 121 H 97 07/29/19 15:24 133 H 128/60 98 07/29/19 15:19 131 H 119/67 98 07/29/19 15:14 127 H 129/70 97 07/29/19 15:10 121 H 132/79 07/29/19 15:06 119 H 97 07/29/19 15:04 125 H 132/82 07/29/19 15:00 119 H 97 07/29/19 14:59 121 H 127/80 07/29/19 14:55 117 H 98 07/29/19 14:54 125 H 132/74 07/29/19 14:50 117 H 98 07/29/19 14:49 112 H 129/70 07/29/19 14:46 118 H 97 07/29/19 14:44 117 H 128/75 07/29/19 14:40 116 H 97 07/29/19 14:39 114 H 131/78 09/27/19 14:35 120 H 99 07/29/19 14:34 122 H 136/74 07/29/19 14:30 124 H 98 07/29/19 14:29 117 H 131/74 07/29/19 14:25 125 H 98 07/29/19 14:24 120 H 121/73 07/29/19 14:20 114 H 98 07/29/19 14:19 117 H 120/72 07/29/19 14:15 120 H 100 07/29/19 14:14 121 H 131/77 07/29/19 14:10 46 L 121/91 88 07/29/19 14:05 123 H 114/75 90 07/29/19 14:04 125 H 100 07/29/19 13:59 124 H 131/72 98 07/29/19 13:55 129 H 132/76 07/29/19 13:54 128 H 100 07/29/19 13:49 137 H 121/73 100 07/29/19 13:45 126 H 120/71 07/29/19 13:44 129 H 99 07/29/19 13:39 133 H 97 07/29/19 13:34 137 H 100 07/29/19 13:30 137 H 127/69 07/29/19 13:29 143 H 100 07/29/19 13:24 131 H 98 07/29/19 13:19 127 H 99 07/29/19 13:14 129 H 100 07/29/19 13:09 127 H 100 07/29/19 13:04 112 H 99 07/29/19 13:01 113 H 110/60 07/29/19 12:59 109 H 99 07/29/19 12:54 117 H 100 07/29/19 12:49 114 H 99 07/29/19 12:46 121 H 118/59 07/29/19 12:44 122 H 99 07/29/19 12:39 114 H 99 07/29/19 12:34 109 H 97 07/29/19 12:32 106 H 113/55 07/29/19 12:29 114 H 97 07/29/19 12:25 115 H 99 07/29/19 12:20 111 H 100 07/29/19 12:15 111 H 66 L 07/29/19 12:10 104 H 67 L 07/29/19 12:05 122 H 100 07/29/19 12:03 125 H 122/69 07/29/19 12:00 118 H 82 L 07/29/19 11:55 115 H 88 07/29/19 11:54 181/100 07/29/19 11:50 116 H 100 07/29/19 11:46 98.1 F 07/29/19 11:45 112 H 100 07/29/19 11:40 113 H 198/103 98 07/29/19 11:39 112 H 92 07/29/19 11:35 125 H 100 07/29/19 11:30 117 H 99 07/29/19 11:29 120 H 126/62 07/29/19 11:25 96 H 92 07/29/19 11:20 105 H 99 07/29/19 11:19 111 H 113/55 07/29/19 11:15 106 H 109/57 93 07/29/19 11:10 98 H 100 07/29/19 11:09 98 H 119/61 07/29/19 11:05 100 H 116/56 100 07/29/19 11:00 103 H 100 07/29/19 10:59 102 H 118/56 07/29/19 10:55 101 H 134/58 99 07/29/19 10:50 97 H 100 07/29/19 10:49 105 H 113/58 07/29/19 10:45 100 H 117/56 07/29/19 10:44 96 H 97 07/29/19 10:40 87 56 L 07/29/19 10:39 81 165/121 53 L 07/29/19 10:35 77 62 L 07/29/19 10:30 97 H 77 L 07/29/19 10:25 103 H 99 07/29/19 10:24 100 H 101/54 07/29/19 10:21 100 H 102/57 07/29/19 10:20 109 H 100 07/29/19 10:15 115 H 100 07/29/19 10:14 113 H 131/58 07/29/19 10:10 114 H 100 07/29/19 10:09 113 H 125/61 07/29/19 10:05 111 H 100 07/29/19 10:04 112 H 119/54 07/29/19 10:01 97.9 F 07/29/19 10:00 109 H 125/60 98 07/29/19 09:55 112 H 99 07/29/19 09:54 103 H 126/62 07/29/19 09:50 118 H 123/58 98 07/29/19 09:45 110 H 98 07/29/19 09:43 114 H 121/62 07/29/19 09:42 102 H 125/64 07/29/19 09:40 106 H 115/62 07/29/19 09:38 128/78 07/29/19 09:36 93 H 98 07/29/19 09:35 103 H 120/68 07/29/19 09:34 98 H 120/66 07/29/19 09:32 93 H 99 07/29/19 09:31 93 H 137/72 07/29/19 09:29 103 H 129/71 07/29/19 09:27 100 H 137/78 100 07/29/19 09:25 106 H 131/72 07/29/19 09:24 102 H 129/77 07/29/19 09:22 102 H 100 07/29/19 09:16 94 07/29/19 09:10 93 H 78 L 07/29/19 09:07 94 H 137/72 07/29/19 09:05 92 H 99 07/29/19 09:03 65 92 07/29/19 09:00 92 H 99 07/29/19 08:57 65 83 L 07/29/19 08:55 90 99 07/29/19 08:50 110 H 99 07/29/19 08:46 76 86 07/29/19 08:45 65 97 07/29/19 08:40 93 H 98 07/29/19 08:38 96 H 141/99 Intake and Output 07/29/19 07/30/19 07/30/19 23:59 07:59 15:59 Intake Total 2260.1 300 Output Total 350 900 Balance 1910.1 -600 Intake: IV 2260.1 Lactated Ringers 1,000 ml 1000 @ 125 mls/hr IV DIRECT [facility] Rx#:[id number] PITOCin/NS 30 UNIT/500ML 60.1 30 units In 500 ml @ 1 MILLIUNITS/MIN 1 mls/hr IV TITR [facility] Rx#:[id number] Intake, Free Water 300 Output: Urine 350 900 Indwelling 100 Indwelling Catheter 900 Other: Total, Output Amount 900 Estimated Blood Loss 900 - Exam Breasts: Present: normal Cardiovascular: Present: Regular rate, Normal S1, Normal S2 Lungs: Present: Clear to auscultation, Normal air movement Abdomen: Present: normal appearance, soft, normal bowel sounds Vulva: both: normal Uterus: Present: normal, firm, fundal height below umbilicus Extremities: Present: normal Deep Tendon Reflex Grade: Normal +2 Incision: Present: dressed (C/D/I, pt to shower and remove dressing this morning)
[2019-07-30] MEDS: HYDROcodone/ACETAMINOPHEN 5-325 MG TAB PO PRN ×3 (08:45→20:17)
[2019-07-30] MEDS: FERROUS SULFATE 325 MG TAB PO SCH (08:47)
[2019-07-30] MEDS: SERTRALINE 100 MG TAB PO SCH (09:59)
--- NOTE | 2019-07-30 11:29 | Progress Note ---
Subjective Date of service: 07/30/19 Principal diagnosis: POD1 s/p primary c/s; GHTN; PDPH Interval history: Asked to see patient for c/o neck stiffness, headache involving the front and back of the head. It is exacerbated by movement and sitting and standing. Physical exam is positive for decreased neck ROM secondary to pain. After discussion of treatments for Post Dural Puncture Headache, patient consented to Epidural blood patch. Monitors applied, Time out performed. Sterile prep/draped, 1% Lidocaine skin wheel 3ml. JOSE with normal saline at 8cm. Negative CSF via Tuohy needle. 15ml of Blood injected. Patient tolerated procedure well. Objective - Constitutional Vitals: Vital Signs - 12hr 07/30/19 07/30/19 07/30/19 00:00 01:03 01:33 Temperature 98.6 F Pulse Rate 78 Respiratory 16 18 18 Rate Blood Pressure 127/77 [Left] O2 Sat by Pulse Oximetry 07/30/19 07/30/19 07/30/19 02:17 02:47 04:00 Temperature 98.4 F Pulse Rate 60 Respiratory 18 18 18 Rate Blood Pressure 112/66 [Left] O2 Sat by Pulse Oximetry 07/30/19 07/30/19 07/30/19 06:29 06:59 09:12 Temperature 98.2 F Pulse Rate 104 H Respiratory 18 18 20 Rate Blood Pressure 129/81 [Left] O2 Sat by Pulse Oximetry 07/30/19 07/30/19 10:25 10:50 Temperature Pulse Rate 109 H 106 H Respiratory 22 20 Rate Blood Pressure 157/85 146/86 [Left] O2 Sat by Pulse 98 98 Oximetry - Labs CBC & Chem 7: 07/30/19 05:36 07/28/19 12:31
[2019-07-30] MEDS: IBUPROFEN 800 MG TAB PO PRN ×2 (12:07→21:45)
[2019-07-31] MEDS: HYDROcodone/ACETAMINOPHEN 5-325 MG TAB PO PRN ×4 (04:27→20:24)
[2019-07-31] MEDS: IBUPROFEN 800 MG TAB PO PRN ×4 (06:15→23:16)
[2019-07-31] MEDS: FERROUS SULFATE 325 MG TAB PO SCH (09:05)
[2019-07-31] MEDS: SERTRALINE 100 MG TAB PO SCH (10:04)
--- NOTE | 2019-07-31 10:39 | Progress Note ---
Assessment and Plan - Patient Problems (1) Anxiety Current Visit: Yes Status: Acute Plan to address problem: -cont' zoloft. Pt doing well at this time. (2) delivery delivered Current Visit: Yes Status: Acute Plan to address problem: -routine post op care -d/c home in am if remains AFVSS (3) Depression Current Visit: Yes Status: Acute Qualifiers: Major depression episode severity: unspecified Plan to address problem: Pt doing well on the Zoloft which she was on prior to -f/u with psych post out pt -no SI/HI at this time (4) Gestational hypertension Onset Date: ~07/28/19 Current Visit: No Status: Acute Qualifiers: Trimester: third trimester Qualified Code(s): O13.3 - Gestational [-induced] hypertension without significant proteinuria, third trimester Plan to address problem: blood pressures are all normal --f/u in office in one week --no meds started at this time. Subjective - Subjective Date of service: 07/31/19 Principal diagnosis: POD2 s/p primary c/s; GHTN Interval history: Pt states she is feeling well today. No headaches or blurry vision. BPs have been normal since delivery. She states that due to having had a c/s and her first baby she is not ready for d/c this am. States if she changes her mind, she will let RN and provider know. Dressing just removed his am. Incision c/d/I with dried blood on the steristrips. Patient reports: appetite normal, voiding normally, pain well controlled : doing well, nursing well Objective - Vital Signs Latest vital signs: Vital Signs Temp Pulse Resp BP Pulse Ox 07/31/19 08:20 98.6 F 95 H 20 134/77 07/31/19 07:15 18 07/31/19 06:15 18 07/31/19 05:27 18 07/31/19 04:27 18 07/31/19 00:00 98.4 F 66 18 103/69 07/30/19 22:45 18 07/30/19 21:45 18 07/30/19 21:17 18 07/30/19 20:17 18 07/30/19 17:00 98.8 F 102 H 20 127/79 07/30/19 13:55 98.5 F 108 H 20 131/80 07/30/19 10:50 106 H 20 146/86 98 Intake and Output 07/30/19 07/31/19 07/31/19 22:59 06:59 14:59 Intake Total 120 600 240 Output Total 3 Balance 117 600 240 Intake: Oral 120 240 Intake, Free Water 600 Output: Urine 3 Void 3 Other: Total, Intake Amount 120 240 Total, Output Amount 3 # Voids Void 400 1 1 - Exam Breasts: Present: normal Lungs: Present: Normal air movement Abdomen: Present: normal appearance, soft, normal bowel sounds. Absent: dis tention, tenderness, guarding Uterus: Present: normal, firm, fundal height below umbilicus. Absent: tenderness Extremities: Present: normal. Absent: tenderness, edema Deep Tendon Reflex Grade: Normal +2 Incision: Present: normal, dry, intact, other (open to air with steristrips in place)
[2019-07-31] MEDS ORDERED: ZOLPIDEM 5 MG TAB PO PRN (19:07)
[2019-08-01] MEDS: HYDROcodone/ACETAMINOPHEN 5-325 MG TAB PO PRN ×2 (02:20→08:44)
[2019-08-01] MEDS: IBUPROFEN 800 MG TAB PO PRN (05:00)
--- NOTE | 2019-08-01 07:19 | Discharge Summary ---
Providers - Providers Date of Admission: 07/28/19 15:19 Date of discharge: 08/01/19 (pt desires d/c) Attending physician: ROSENDA JOHNSON 07/30/19 08:36 Consult to Anesthesiology [CONS] Routine Consulting Provider: JOSE GOODMAN Reason For Exam: assess for PDPH Primary care physician: ROSENDA JOHNSON Hospitalization Reason for admission: induction of labor Delivery: Procedure: primary low transverse Episiotomy: none Laceration: none Incision: normal, dry, intact Other procedures: none complications: other (HINTON good relief after blood patch) Discharge diagnosis: IUP at term delivered [place] baby: male (desires circ to be done in OB office) Hospital course: failed IOL OP uncomplicated section Pt resting No c/o voiced VSS FF below umb Lochia small Incision D&I No s/sx of anemia Doing well s/p primary c/s P: d/c today with instructions RTO 1 week postop and circ RX @ d/c Condition at discharge: Good Disposition: DC-01 TO HOME OR SELFCARE - Discharge Diagnoses (1) Gestational hypertension Status: Acute Qualifiers: Trimester: third trimester Qualified Code(s): O13.3 - Gestational [-induced] hypertension without significant proteinuria, third trimester Comment: will have 2hr GTT @ 6 weeks PP (2) delivery delivered Status: Acute Comment: RTO 1 week postop care Plan - Discharge Medications Prescriptions: Docusate Sodium [Colace] 100 mg PO BID PRN #60 capsule PRN Reason: Constipation Lidocain2.5%/Prilocai2.5% [Emla] 2 gm TP ONCE #1 tube Ferrous Sulfate [Feosol 325 MG tab] 325 mg PO QDAY #60 tablet Ibuprofen [Motrin 800 MG tab] 800 mg PO Q8HR PRN #30 tablet PRN Reason: Pain, Moderate (4-6) oxyCODONE /ACETAMINOPHEN [Percocet 5/325] 1 tab PO Q4HR #30 tab Sertraline HCl [Zoloft] 100 mg PO DAILY #30 tablet - Provider Discharge Summary Activity: routine, no sex for 6 weeks, no heavy lifting 4 weeks, no strenuous exercise Diet: routine Instructions: routine Additional instructions: [] Smoking cessation referral if applicable(refer to patient education folder for contact #) [] Refer to [facility] Booklet Call your doctor immediately for: * Fever > 100.5 * Heavy vaginal bleeding ( >1 pad per hour) * Severe persistent headache * Shortness of breath * Reddened, hot, painful area to leg or breast * Drainage or odor from incision. * Keep incision clean and dry at all times and follow doctor's instructions regarding bathing/showering - Follow up plan Follow up: ROSENDA JOHNSON MD [Primary Care Provider] - 7 Days (Congratulations! Please call [phone] to schedule your postoperative visit and your son's circumcision in 1 week. Bring EMLA cream with you to son's circumcision. Do NOT use at home. Take medications as prescribed. Call with concerns.)
[2019-08-01] MEDS: SERTRALINE 100 MG TAB PO SCH (10:04)
[2019-08-01] MEDS: FERROUS SULFATE 325 MG TAB PO SCH (10:05)
[2019-08-01 12:11] VITALS: BP 132/88
== END 2019-08-01 14:42 | disposition home or self-care (01) | DRG 765 ==
LOC: TRG 11:37 → LD 14:44 → TRG 15:19 → OB 07-29 20:24
PROVIDERS: ADMIT Obstetrics & Gynecology; ATTEND Obstetrics & Gynecology
PROC: 10D00Z1 Extraction of Products of Conception, Low, Open Approach (ICD-10-PCS; principal; 2019-07-29)
PROC: 10H07YZ Insertion of Other Device into Products of Conception, Via Natural or Artificial Opening (ICD-10-PCS; 2019-07-29)
DX: O99.344 Other mental disorders complicating childbirth (principal); O13.3 Gestational [pregnancy-induced] hypertension without significant proteinuria, third trimester; O64.0XX0 Obstructed labor due to incomplete rotation of fetal head, not applicable or unspecified; O61.9 Failed induction of labor, unspecified; Z3A.40 40 weeks gestation of pregnancy; Z37.0 Single live birth; F32.9 Major depressive disorder, single episode, unspecified; F41.9 Anxiety disorder, unspecified; O99.214 Obesity complicating childbirth; E66.9 Obesity, unspecified; O74.5 Spinal and epidural anesthesia-induced headache during labor and delivery
CPT/HCPCS: 36415; 76815; 76819; 81001; 82565; 83615; 84450; 84460; 84550; 85014; 85018; 85027; 86592; 86850; 86900; 86901; 88307; G0378; A6250; J0690; J1170; J1885; J2405; J2590; J2765; J3010; J7120